=== PATIENT | female | born 1945 | race Caucasian/White ===

== ENCOUNTER 2017-10-30 11:22 | Inpatient (IN) | payer MEDICARE, OTHER ==
[~2017-10-30] VITALS: Ht 165.1 cm; Wt 77.6 kg
[2017-10-30] MEDS ORDERED: SODIUM CHLORIDE 0.9% 1,000 ML IV ONE ×2 (12:15→15:45)
[2017-10-30] MEDS ORDERED: LEVOFLOXACIN 500MG 100 ML IV ONE (12:15)
[2017-10-30 12:51] LABS: Basophils # (auto) 0 uL; Basophils % (auto) 0.2 % (0.0-2.0); Eosinophils % (auto) 5.9 % (0.0-7.0); Lymphocytes # (auto) 0.5 uL; Lymphocytes % (auto) 2.7 % (10.0-50.0); Mean Corpuscular Hemoglobin 28.4 pg (28.0-32.0); Mean Corpuscular Hgb Conc. 32.4 g/dL (32.0-36.0); Mean Corpuscular Volume 87.8 fL (80.0-100.0); Monocytes # (auto) 0.3 uL; Monocytes % (auto) 1.9 % (0.0-12.0); Neutrophils # (auto) 14.9 uL; Neutrophils % (auto) 89.3 % (37.0-80.0); Nucleated Red Blood Cells % 0.1 %; Platelet Count (auto) 165 10^3/uL (140-450); Red Blood Cells 4.22 10^6/uL (4.0-5.20); Red Cell Distribution Width 14.8 % (11.8-14.3); White Blood Cell 16.7 10^3/uL (4.4-10.8)
[2017-10-30 13:13] LABS: Albumin 1.8 g/dL (3.4-5.0); BUN/Creatinine Ratio 47.7; Calcium 8.1 mg/dL (8.5-10.1); Potassium 3.8 mmol/L (3.5-5.1)
[2017-10-30 13:18] LABS: Bilirubin, Total 0.8 mg/dL (0.2-1.0); Total Protein 6.5 g/dL (6.4-8.2)
[2017-10-30] MEDS ORDERED: AZITHROMYCIN 500MG/ 250ML 250 ML IV ONE ×2 (14:30→15:30)
[2017-10-30] MEDS ORDERED: SODIUM CHLORIDE 0.9% 500 ML IV ONE (14:45)
[2017-10-30] MEDS ORDERED: SODIUM CHLORIDE 0.9% 1,000 ML IV SCH (14:52)
[2017-10-30] MEDS ORDERED: TEMAZEPAM 15 MG CAP PO PRN (15:00)
[2017-10-30] MEDS ORDERED: LORazepam 0.5 MG TAB PO PRN (15:00)
[2017-10-30] MEDS ORDERED: MORPHINE SULF INJ 2 MG/ML SYRINGE 1ML IV PRN ×2 (15:00)
[2017-10-30] MEDS ORDERED: ALBUTEROL SULF 2.5 MG/0.5ML(0.5%) NEB SOLN NEB PRN (15:00)
[2017-10-30] MEDS ORDERED: NITROGLYCERIN 0.4 MG SL TAB SL PRN (15:00)
[2017-10-30] MEDS ORDERED: LACTULOSE 20Gm/30ML SOLN PO PRN (15:00)
[2017-10-30] MEDS ORDERED: DEXTROSE (50%) 50ML SYRG IV PRN (15:00)
[2017-10-30] MEDS ORDERED: PIPERACILLIN-TAZOB 3.375GM 50 ML IV ONE (15:30)
[2017-10-30] MEDS ORDERED: OSELTAMIVIR 75 MG CAP PO ONE (15:30)
[2017-10-30] MEDS ORDERED: ONDANSETRON HCL 4 MG/2 ML VIAL ONE (15:54)
[2017-10-30] MEDS ORDERED: ONDANSETRON HCL 4 MG/2 ML VIAL IV ONE (16:15)
[2017-10-30] MEDS ORDERED: methylPREDNISolone SOD SUCC 40 MG/ML VL IV ONE (16:30)
[2017-10-30] MEDS: ACCU-CHEK COMFORT CURVE STRIP VI SCH ×2 (16:31→20:36)
[2017-10-30] MEDS: SODIUM CHLORIDE 0.9% 1,000 ML IV SCH (17:32)
[2017-10-30] MEDS: LINEZOLID 600MG/300ML 300 ML IV SCH (17:45)
[2017-10-30] MEDS: methylPREDNISolone SOD SUCC 40 MG/ML VL IV SCH (17:45)
[2017-10-30] MEDS: IPRATROPIUM BROM 0.5 MG/2.5ML INH SOL NEB SCH ×2 (18:25→23:26)
[2017-10-30] MEDS: ALBUTEROL SULF 2.5 MG/0.5ML(0.5%) NEB SOLN NEB SCH ×2 (18:25→23:26)
[2017-10-30 19:10] VITALS: BP 94/40
[2017-10-30 20:50] VITALS: BP 97/54
[2017-10-30] MEDS: PIPERACILLIN-TAZOB 3.375GM 50 ML IV SCH (21:31)
[2017-10-30] MEDS: ATORVASTATIN 20 MG TAB PO SCH (21:42)
[2017-10-30] MEDS ORDERED: OSELTAMIVIR 30 MG CAP PO SCH (22:00)
[2017-10-30 22:46] VITALS: BP 89/44
[2017-10-31] VITALS (9 sets, daily range): BP systolic 97–140; BP diastolic 47–64
[2017-10-31] MEDS: ACCU-CHEK COMFORT CURVE STRIP VI SCH ×6 (00:14→20:00)
[2017-10-31] MEDS: HYDROcodone-ACET 5/325MG TAB PO PRN ×4 (00:22→22:51)
[2017-10-31] MEDS: SODIUM CHLORIDE 0.9% 1,000 ML IV SCH ×3 (01:00→22:30)
[2017-10-31] MEDS: PIPERACILLIN-TAZOB 3.375GM 50 ML IV SCH ×4 (03:11→21:42)
[2017-10-31 05:02] LABS: Basophils # (auto) 0 uL; Basophils % (auto) 0.2 % (0.0-2.0); Eosinophils # (auto) 0 uL; Eosinophils % (auto) 0.2 % (0.0-7.0); Hematocrit 32.5 % (36.0-46.0); Lymphocytes # (auto) 0.2 uL; Lymphocytes % (auto) 1.4 % (10.0-50.0); Mean Corpuscular Hemoglobin 28.7 pg (28.0-32.0); Mean Corpuscular Hgb Conc. 33.7 g/dL (32.0-36.0); Mean Corpuscular Volume 85.1 fL (80.0-100.0); Monocytes # (auto) 0.2 uL; Monocytes % (auto) 1.3 % (0.0-12.0); Neutrophils % (auto) 96.9 % (37.0-80.0); Platelet Count (auto) 149 10^3/uL (140-450); Red Blood Cells 3.82 10^6/uL (4.0-5.20); Red Cell Distribution Width 14.4 % (11.8-14.3); White Blood Cell 13.4 10^3/uL (4.4-10.8)
[2017-10-31] MEDS: LINEZOLID 600MG/300ML 300 ML IV SCH ×2 (05:10→16:59)
[2017-10-31 05:37] LABS: Albumin 1.6 g/dL (3.4-5.0); BUN/Creatinine Ratio 72.1; Bilirubin, Total 0.8 mg/dL (0.2-1.0); Calcium 7.4 mg/dL (8.5-10.1); Potassium 3.5 mmol/L (3.5-5.1); Total Protein 6.2 g/dL (6.4-8.2)
[2017-10-31] MEDS: methylPREDNISolone SOD SUCC 40 MG/ML VL IV SCH ×2 (06:16→18:00)
[2017-10-31] MEDS: ALBUTEROL SULF 2.5 MG/0.5ML(0.5%) NEB SOLN NEB SCH ×3 (06:46→18:25)
[2017-10-31] MEDS: IPRATROPIUM BROM 0.5 MG/2.5ML INH SOL NEB SCH ×3 (06:46→18:25)
[2017-10-31] MEDS: PROMETHAZINE HCL 25 MG/ML 1ML IV PRN ×2 (09:11→09:50)
[2017-10-31] MEDS: ASPirin 81 mg TAB PO SCH (09:59)
[2017-10-31] MEDS: AZITHROMYCIN 500MG/ 250ML 250 ML IV SCH (10:00)
[2017-10-31] MEDS: ENOXAPARIN SOD 40 MG/0.4 ML SYRINGE SC SCH (10:00)
[2017-10-31] MEDS ORDERED: MORPHINE SULFATE 4 MG/ML SYR/VIAL IV PRN ×2 (11:00)
[2017-10-31 17:36] LABS: BUN/Creatinine Ratio 56.9; Calcium 8.1 mg/dL (8.5-10.1); Potassium 3.2 mmol/L (3.5-5.1)
[2017-10-31] MEDS: POTASSIUM CHL 20MEQ/50ML 50 ML IV SCH ×2 (19:35→21:45)
[2017-10-31] MEDS: ATORVASTATIN 20 MG TAB PO SCH (22:51)
[2017-11-01] VITALS (24 sets, daily range): BP systolic 107–156; BP diastolic 53–83
[2017-11-01] MEDS: IPRATROPIUM BROM 0.5 MG/2.5ML INH SOL NEB SCH ×4 (00:44→19:25)
[2017-11-01] MEDS: ALBUTEROL SULF 2.5 MG/0.5ML(0.5%) NEB SOLN NEB SCH ×4 (00:44→19:25)
[2017-11-01] MEDS: PIPERACILLIN-TAZOB 3.375GM 50 ML IV SCH ×3 (03:01→14:44)
[2017-11-01] MEDS: ACCU-CHEK COMFORT CURVE STRIP VI SCH ×4 (04:12→12:27)
[2017-11-01] MEDS: LINEZOLID 600MG/300ML 300 ML IV SCH ×2 (05:25→17:51)
[2017-11-01] MEDS: methylPREDNISolone SOD SUCC 40 MG/ML VL IV SCH ×2 (05:25→17:51)
[2017-11-01] MEDS: SODIUM CHLORIDE 0.9% 1,000 ML IV SCH ×2 (08:30→16:00)
[2017-11-01] MEDS: ASPirin 81 mg TAB PO SCH (09:57)
[2017-11-01] MEDS: ENOXAPARIN SOD 40 MG/0.4 ML SYRINGE SC SCH (09:58)
[2017-11-01] MEDS ORDERED: POTASSIUM CHL 20MEQ/50ML 50 ML IV ONE (10:00)
[2017-11-01] MEDS: AZITHROMYCIN 500MG/ 250ML 250 ML IV SCH (10:00)
[2017-11-01] MEDS: ROTIGOTINE TD SCH (10:00)
[2017-11-01] MEDS ORDERED: ETOMIDATE (2MG/ML) 20ML VIAL IV ONE (20:25)
[2017-11-01] MEDS ORDERED: ROCURONIUM 10MG/ML 10ML VIAL IV ONE ×2 (20:25→21:22)
[2017-11-01] MEDS ORDERED: SUCCINYLCHOLINE CHLORIDE 20 MG/ML 10ML VIAL IV ONE (20:26)
[2017-11-01] MEDS ORDERED: MIDAZOLAM HCL 1MG/1ML-2 ML VIAL ONE (20:27)
[2017-11-01] MEDS ORDERED: MIDAZOLAM DRIP 50 mg/50mL 50 ML IV ONE ×2 (20:51→23:28)
[2017-11-01] MEDS ORDERED: PROPOFOL 100 ML IV ONE ×2 (21:14→23:33)
[2017-11-01] MEDS ORDERED: PROPOFOL 10 MG/ML 20 ML IV PRN (21:15)
[2017-11-01] MEDS: PROPOFOL 100 ML IV SCH (21:30)
[2017-11-01] MEDS: ATORVASTATIN 20 MG TAB PO SCH (22:00)
[2017-11-01] MEDS: MIDAZOLAM DRIP 50 mg/50mL 50 ML IV SCH (23:40)
[2017-11-02] VITALS (106 sets, daily range): BP systolic 82–138; BP diastolic 40–69
[2017-11-02] MEDS ORDERED: AMIODARONE HCL 900 MG IV ONE (00:34)
[2017-11-02] MEDS ORDERED: AMIODARONE HCL (50 MG/ ML) 3 ML VIAL IV ONE (00:34)
[2017-11-02 00:45] LABS: Basophils # (auto) 0 uL; Basophils % (auto) 0.1 % (0.0-2.0); Eosinophils # (auto) 0 uL; Eosinophils % (auto) 0.2 % (0.0-7.0); Hematocrit 30.1 % (36.0-46.0); Hemoglobin 9.9 g/dL (12.2-16.2); Lymphocytes # (auto) 0.1 uL; Lymphocytes % (auto) 0.9 % (10.0-50.0); Mean Corpuscular Hgb Conc. 32.7 g/dL (32.0-36.0); Mean Corpuscular Volume 85.7 fL (80.0-100.0); Monocytes # (auto) 0.1 uL; Monocytes % (auto) 1.1 % (0.0-12.0); Neutrophils # (auto) 11.1 uL; Neutrophils % (auto) 97.7 % (37.0-80.0); Platelet Count (auto) 143 10^3/uL (140-450); Red Blood Cells 3.51 10^6/uL (4.0-5.20); Red Cell Distribution Width 14.4 % (11.8-14.3); White Blood Cell 11.4 10^3/uL (4.4-10.8)
[2017-11-02] MEDS ORDERED: AMIODARONE HCL 150 MG in D5W 5% 100 ML IV ONE (00:45)
[2017-11-02] MEDS ORDERED: AMIODARONE HCL 900 MG in DEXTROSE 500 ML IV SCH (00:45)
[2017-11-02] MEDS: PIPERACILLIN-TAZOB 3.375GM 50 ML IV SCH ×5 (01:00→20:36)
[2017-11-02 01:06] LABS: Albumin 1.5 g/dL (3.4-5.0); BUN/Creatinine Ratio 54.5; Calcium 8.2 mg/dL (8.5-10.1); Magnesium 2.1 mg/dL (1.6-2.6); Potassium 3.8 mmol/L (3.5-5.1)
[2017-11-02 01:09] LABS: Bilirubin, Total 0.6 mg/dL (0.2-1.0); Total Protein 5.7 g/dL (6.4-8.2)
[2017-11-02] MEDS: fentaNYL Drip 2500mCg/250mlNS 250 ML IV SCH (02:00)
[2017-11-02] MEDS ORDERED: ALBUMIN 5% 50 ML IV ONE (02:15)
[2017-11-02] MEDS ORDERED: ALBUMIN 25% 100 ML IV ONE (02:26)
[2017-11-02] MEDS: ACETAMINOPHEN 500 MG TAB PO PRN ×2 (02:28→23:00)
[2017-11-02 04:39] LABS: Basophils # (auto) 0 uL; Basophils % (auto) 0.1 % (0.0-2.0); Eosinophils # (auto) 0 uL; Eosinophils % (auto) 0.3 % (0.0-7.0); Hematocrit 28.5 % (36.0-46.0); Hemoglobin 9.4 g/dL (12.2-16.2); Lymphocytes # (auto) 0.1 uL; Lymphocytes % (auto) 1.3 % (10.0-50.0); Mean Corpuscular Hemoglobin 28.9 pg (28.0-32.0); Mean Corpuscular Volume 87.5 fL (80.0-100.0); Monocytes # (auto) 0.1 uL; Monocytes % (auto) 1.1 % (0.0-12.0); Neutrophils # (auto) 9.1 uL; Neutrophils % (auto) 97.2 % (37.0-80.0); Platelet Count (auto) 129 10^3/uL (140-450); Red Blood Cells 3.26 10^6/uL (4.0-5.20); Red Cell Distribution Width 14.3 % (11.8-14.3); White Blood Cell 9.4 10^3/uL (4.4-10.8)
[2017-11-02 04:49] LABS: BUN/Creatinine Ratio 60.7; Calcium 8.1 mg/dL (8.5-10.1); Magnesium 2.2 mg/dL (1.6-2.6); Potassium 3.3 mmol/L (3.5-5.1)
[2017-11-02] MEDS: LINEZOLID 600MG/300ML 300 ML IV SCH ×2 (05:00→17:41)
[2017-11-02] MEDS: methylPREDNISolone SOD SUCC 40 MG/ML VL IV SCH ×2 (06:00→18:08)
[2017-11-02] MEDS: SODIUM CHLORIDE 0.9% 1,000 ML IV SCH ×2 (06:03→10:14)
[2017-11-02] MEDS: IPRATROPIUM BROM 0.5 MG/2.5ML INH SOL NEB SCH ×4 (06:16→18:33)
[2017-11-02] MEDS: ALBUTEROL SULF 2.5 MG/0.5ML(0.5%) NEB SOLN NEB SCH ×4 (06:16→18:33)
[2017-11-02] MEDS: AMIODARONE HCL 900 MG in DEXTROSE 500 ML IV SCH ×2 (06:54→20:36)
[2017-11-02] MEDS: ROTIGOTINE TD SCH (10:00)
[2017-11-02] MEDS ORDERED: FUROSEMIDE 20 MG/2 ML VIAL ONE (10:05)
[2017-11-02] MEDS: NOREPINEPHRINE 8 MG/250ML KIT 250 ML IV SCH (10:15)
[2017-11-02] MEDS: AZITHROMYCIN 500MG/ 250ML 250 ML IV SCH (10:15)
[2017-11-02] MEDS: ENOXAPARIN SOD 40 MG/0.4 ML SYRINGE SC SCH (10:15)
[2017-11-02] MEDS ORDERED: FUROSEMIDE 20 MG/2 ML VIAL IV ONE ×2 (10:15→14:30)
[2017-11-02] MEDS: ASPirin 81 mg TAB PO SCH (10:16)
[2017-11-02] MEDS ORDERED: POTASSIUM CHL 10% (20 MEQ/15ML) 15ml ORAL SOLN GT ONE (11:15)
[2017-11-02] MEDS: MIDAZOLAM DRIP 50 mg/50mL 50 ML IV SCH ×3 (12:52→22:44)
[2017-11-02 15:34] LABS: Urine Bacteria NONE SEEN /hpf (None Seen); Urine Blood 1+ /uL (Negative); Urine Budding Yeast FEW /hpf (None Seen); Urine Mucus FEW (None Seen); Urine Specific Gravity 1.021 (1.001-1.035); Urine WBC 11 /hpf (0 - 5)
[2017-11-02 17:16] LABS: Lactic Acid w/Reflex 2.2 mmol/L (0.4-2.0)
[2017-11-02] MEDS: PROPOFOL 100 ML IV SCH ×2 (18:08→22:43)
[2017-11-02] MEDS: ATORVASTATIN 20 MG TAB PO SCH (22:00)
[2017-11-03] VITALS (99 sets, daily range): BP systolic 89–173; BP diastolic 36–87
[2017-11-03] MEDS: ALBUTEROL SULF 2.5 MG/0.5ML(0.5%) NEB SOLN NEB SCH ×4 (00:14→18:30)
[2017-11-03] MEDS: IPRATROPIUM BROM 0.5 MG/2.5ML INH SOL NEB SCH ×4 (00:14→18:30)
[2017-11-03] MEDS: fentaNYL Drip 2500mCg/250mlNS 250 ML IV SCH ×2 (00:30→17:18)
[2017-11-03] MEDS: PIPERACILLIN-TAZOB 3.375GM 50 ML IV SCH ×4 (03:00→21:14)
[2017-11-03] MEDS: MIDAZOLAM DRIP 50 mg/50mL 50 ML IV SCH ×5 (03:47→23:40)
[2017-11-03] MEDS: PROPOFOL 100 ML IV SCH ×3 (03:48→23:47)
[2017-11-03 05:26] LABS: Basophils # (auto) 0 uL; Basophils % (auto) 0.3 % (0.0-2.0); Eosinophils # (auto) 0.6 uL; Eosinophils % (auto) 5.2 % (0.0-7.0); Hematocrit 33.3 % (36.0-46.0); Hemoglobin 10.9 g/dL (12.2-16.2); Lymphocytes # (auto) 0.2 uL; Lymphocytes % (auto) 1.6 % (10.0-50.0); Mean Corpuscular Hgb Conc. 32.7 g/dL (32.0-36.0); Mean Corpuscular Volume 88.8 fL (80.0-100.0); Monocytes # (auto) 0.1 uL; Monocytes % (auto) 0.6 % (0.0-12.0); Neutrophils # (auto) 10.7 uL; Neutrophils % (auto) 92.3 % (37.0-80.0); Nucleated Red Blood Cells % 0.1 %; Platelet Count (auto) 125 10^3/uL (140-450); Red Blood Cells 3.75 10^6/uL (4.0-5.20); Red Cell Distribution Width 14.6 % (11.8-14.3); White Blood Cell 11.5 10^3/uL (4.4-10.8)
[2017-11-03 05:34] LABS: BUN/Creatinine Ratio 41.3; Calcium 8.3 mg/dL (8.5-10.1); Potassium 3.6 mmol/L (3.5-5.1)
[2017-11-03] MEDS: LINEZOLID 600MG/300ML 300 ML IV SCH ×2 (06:08→17:17)
[2017-11-03] MEDS: methylPREDNISolone SOD SUCC 40 MG/ML VL IV SCH ×2 (06:09→17:23)
[2017-11-03] MEDS: ROTIGOTINE TD SCH (09:43)
[2017-11-03] MEDS: ASPirin 81 mg TAB PO SCH (09:43)
[2017-11-03] MEDS: AZITHROMYCIN 500MG/ 250ML 250 ML IV SCH (09:43)
[2017-11-03] MEDS: ENOXAPARIN SOD 40 MG/0.4 ML SYRINGE SC SCH (09:43)
[2017-11-03] MEDS: SODIUM CHLORIDE 0.9% 1,000 ML IV SCH (10:15)
[2017-11-03] MEDS: NOREPINEPHRINE 8 MG/250ML KIT 250 ML IV SCH ×2 (10:15→17:34)
[2017-11-03] MEDS ORDERED: FLUCONAZOLE 200MG/100ML 100 ML IV ONE (11:15)
[2017-11-03] MEDS: ATORVASTATIN 20 MG TAB PO SCH (21:23)
[2017-11-03] MEDS: ACETAMINOPHEN 500 MG TAB PO PRN (21:24)
[2017-11-04] VITALS (94 sets, daily range): BP systolic 98–139; BP diastolic 36–65
[2017-11-04] MEDS: ALBUTEROL SULF 2.5 MG/0.5ML(0.5%) NEB SOLN NEB SCH ×4 (00:21→19:30)
[2017-11-04] MEDS: IPRATROPIUM BROM 0.5 MG/2.5ML INH SOL NEB SCH ×4 (00:21→19:30)
[2017-11-04] MEDS: AMIODARONE HCL 900 MG in DEXTROSE 500 ML IV SCH (03:07)
[2017-11-04] MEDS: PIPERACILLIN-TAZOB 3.375GM 50 ML IV SCH ×4 (03:08→20:49)
[2017-11-04 04:10] LABS: Basophils # (auto) 0 uL; Basophils % (auto) 0.1 % (0.0-2.0); Eosinophils # (auto) 0.1 uL; Eosinophils % (auto) 1.3 % (0.0-7.0); Hematocrit 33.4 % (36.0-46.0); Hemoglobin 11.1 g/dL (12.2-16.2); Lymphocytes # (auto) 0.1 uL; Lymphocytes % (auto) 1.9 % (10.0-50.0); Mean Corpuscular Hemoglobin 30.3 pg (28.0-32.0); Mean Corpuscular Hgb Conc. 33.3 g/dL (32.0-36.0); Mean Corpuscular Volume 91.2 fL (80.0-100.0); Monocytes # (auto) 0.1 uL; Monocytes % (auto) 0.9 % (0.0-12.0); Neutrophils # (auto) 6.8 uL; Neutrophils % (auto) 95.8 % (37.0-80.0); Nucleated Red Blood Cells % 0.1 %; Platelet Count (auto) 88 10^3/uL (140-450); Red Blood Cells 3.66 10^6/uL (4.0-5.20); Red Cell Distribution Width 14.6 % (11.8-14.3); White Blood Cell 7.1 10^3/uL (4.4-10.8)
[2017-11-04 04:29] LABS: Calcium 8.1 mg/dL (8.5-10.1); Potassium 3.3 mmol/L (3.5-5.1)
[2017-11-04] MEDS: LINEZOLID 600MG/300ML 300 ML IV SCH (04:41)
[2017-11-04] MEDS: methylPREDNISolone SOD SUCC 40 MG/ML VL IV SCH ×2 (04:41→18:21)
[2017-11-04] MEDS: MIDAZOLAM DRIP 50 mg/50mL 50 ML IV SCH ×4 (04:44→20:06)
[2017-11-04] MEDS: PROPOFOL 100 ML IV SCH ×3 (08:52→20:06)
[2017-11-04] MEDS: ENOXAPARIN SOD 40 MG/0.4 ML SYRINGE SC SCH (10:00)
[2017-11-04] MEDS: ASPirin 81 mg TAB PO SCH (10:09)
[2017-11-04] MEDS: FLUCONAZOLE 200MG/100ML 100 ML IV SCH (10:09)
[2017-11-04] MEDS: fentaNYL Drip 2500mCg/250mlNS 250 ML IV SCH (10:09)
[2017-11-04] MEDS: POTASSIUM CHL 20MEQ/50ML 50 ML IV SCH ×2 (10:10→11:39)
[2017-11-04] MEDS: SODIUM CHLORIDE 0.9% 1,000 ML IV SCH (10:15)
[2017-11-04] MEDS: ROTIGOTINE TD SCH (10:35)
[2017-11-04] MEDS: AZITHROMYCIN 500MG/ 250ML 250 ML IV SCH (11:39)
[2017-11-04] MEDS ORDERED: VANCOMYCIN PER PHARMACY 0 MG IV SCH (14:15)
[2017-11-04] MEDS: VANCOMYCIN 1GM/250ML 250 ML IV SCH (15:00)
[2017-11-04] MEDS: FUROSEMIDE 40 MG/4 ML VIAL IV SCH (18:21)
[2017-11-04 19:03] LABS: BUN/Creatinine Ratio 35.6; Calcium 7.8 mg/dL (8.5-10.1); Potassium 4.4 mmol/L (3.5-5.1)
[2017-11-04] MEDS: ATORVASTATIN 20 MG TAB PO SCH (22:00)
[2017-11-05] VITALS (96 sets, daily range): BP systolic 91–175; BP diastolic 41–79
[2017-11-05] MEDS: IPRATROPIUM BROM 0.5 MG/2.5ML INH SOL NEB SCH ×4 (00:25→18:26)
[2017-11-05] MEDS: ALBUTEROL SULF 2.5 MG/0.5ML(0.5%) NEB SOLN NEB SCH ×4 (00:25→18:26)
[2017-11-05] MEDS: PIPERACILLIN-TAZOB 3.375GM 50 ML IV SCH ×4 (03:18→21:10)
[2017-11-05] MEDS: FUROSEMIDE 40 MG/4 ML VIAL IV SCH ×2 (06:17→17:42)
[2017-11-05] MEDS: methylPREDNISolone SOD SUCC 40 MG/ML VL IV SCH ×2 (06:17→17:41)
[2017-11-05] MEDS: AMIODARONE HCL 900 MG in DEXTROSE 500 ML IV SCH (06:18)
[2017-11-05] MEDS: MIDAZOLAM DRIP 50 mg/50mL 50 ML IV SCH ×3 (06:18→21:11)
[2017-11-05] MEDS: PROPOFOL 100 ML IV SCH ×3 (06:18→21:11)
[2017-11-05] MEDS: VANCOMYCIN 1GM/250ML 250 ML IV SCH ×2 (06:28→21:10)
[2017-11-05] MEDS: NOREPINEPHRINE 8 MG/250ML KIT 250 ML IV SCH (10:15)
[2017-11-05] MEDS: SODIUM CHLORIDE 0.9% 1,000 ML IV SCH (10:15)
[2017-11-05] MEDS: FLUCONAZOLE 200MG/100ML 100 ML IV SCH (10:36)
[2017-11-05] MEDS: ENOXAPARIN SOD 40 MG/0.4 ML SYRINGE SC SCH (10:36)
[2017-11-05] MEDS: ASPirin 81 mg TAB PO SCH (10:36)
[2017-11-05] MEDS: ROTIGOTINE TD SCH (10:37)
[2017-11-05] MEDS: AMIODARONE HCL 200 MG TAB PO SCH ×2 (14:59→22:00)
[2017-11-05] MEDS: fentaNYL Drip 2500mCg/250mlNS 250 ML IV SCH (17:07)
[2017-11-05] MEDS: ATORVASTATIN 20 MG TAB PO SCH (22:00)
[2017-11-06] VITALS (69 sets, daily range): BP systolic 90–115; BP diastolic 36–53
[2017-11-06] MEDS: ALBUTEROL SULF 2.5 MG/0.5ML(0.5%) NEB SOLN NEB SCH ×4 (00:28→18:30)
[2017-11-06] MEDS: IPRATROPIUM BROM 0.5 MG/2.5ML INH SOL NEB SCH ×4 (00:28→18:30)
[2017-11-06] MEDS: PIPERACILLIN-TAZOB 3.375GM 50 ML IV SCH ×2 (03:21→08:41)
[2017-11-06 05:11] LABS: Basophils # (auto) 0 uL; Basophils % (auto) 0.1 % (0.0-2.0); Eosinophils # (auto) 0.1 uL; Hemoglobin 9.1 g/dL (12.2-16.2); Lymphocytes # (auto) 0.2 uL; Monocytes # (auto) 0.1 uL
[2017-11-06 05:13] LABS: Lymphocytes % (auto) 2.9 % (10.0-50.0); Mean Corpuscular Hemoglobin 28.9 pg (28.0-32.0); Mean Corpuscular Hgb Conc. 33.8 g/dL (32.0-36.0); Mean Corpuscular Volume 85.7 fL (80.0-100.0); Monocytes % (auto) 1.2 % (0.0-12.0); Neutrophils # (auto) 7.1 uL; Neutrophils % (auto) 94.8 % (37.0-80.0); Nucleated Red Blood Cells % 0.6 %; Platelet Count (auto) 32 10^3/uL (140-450); Red Blood Cells 3.15 10^6/uL (4.0-5.20); Red Cell Distribution Width 14.5 % (11.8-14.3); White Blood Cell 7.5 10^3/uL (4.4-10.8)
[2017-11-06] MEDS: FUROSEMIDE 40 MG/4 ML VIAL IV SCH (06:00)
[2017-11-06] MEDS: methylPREDNISolone SOD SUCC 40 MG/ML VL IV SCH ×2 (06:00→09:49)
[2017-11-06 07:45] LABS: Albumin 1.2 g/dL (3.4-5.0); Bilirubin, Total 1.5 mg/dL (0.2-1.0); Calcium 7.3 mg/dL (8.5-10.1); Total Protein 4.9 g/dL (6.4-8.2)
[2017-11-06] MEDS: ENOXAPARIN SOD 40 MG/0.4 ML SYRINGE SC SCH (09:49)
[2017-11-06] MEDS: AMIODARONE HCL 200 MG TAB PO SCH ×2 (09:49→22:07)
[2017-11-06] MEDS: FLUCONAZOLE 200MG/100ML 100 ML IV SCH (09:49)
[2017-11-06] MEDS: ASPirin 81 mg TAB PO SCH (09:49)
[2017-11-06] MEDS: ROTIGOTINE TD SCH (09:51)
[2017-11-06] MEDS: SODIUM CHLORIDE 0.9% 1,000 ML IV SCH (10:15)
[2017-11-06] MEDS: NOREPINEPHRINE 8 MG/250ML KIT 250 ML IV SCH (10:15)
[2017-11-06 11:10] LABS: BUN/Creatinine Ratio 30.8; Calcium 7.4 mg/dL (8.5-10.1); Potassium 5.1 mmol/L (3.5-5.1)
[2017-11-06] MEDS: MIDAZOLAM DRIP 50 mg/50mL 50 ML IV SCH ×2 (11:38→19:41)
[2017-11-06] MEDS: PROPOFOL 100 ML IV SCH ×2 (11:40→18:39)
[2017-11-06] MEDS: PIPERACILLIN TAZOB 2.25 GM IV SCH ×2 (11:50→17:33)
[2017-11-06] MEDS ORDERED: CLINIMIX PER PHARMACY 0 ML IV SCH (15:15)
[2017-11-06 15:51] LABS: Magnesium 2.3 mg/dL (1.6-2.6); Phosphorus 5.2 mg/dL (2.5-4.90); Pre Albumin 3.8 mg/dL (20.0-40.0)
[2017-11-06] MEDS: ACCU-CHEK COMFORT CURVE STRIP VI SCH (17:33)
[2017-11-06] MEDS: InsuLIN REG 1unit/0.01ml Soln (100units/ml) SC SCH (17:33)
[2017-11-06] MEDS ORDERED: DEXTROSE (50%) 50ML SYRG IV SCH (18:00)
[2017-11-06] MEDS ORDERED: CLINIMIX PER PHARMACY IV NR ×7 (20:00)
[2017-11-06] MEDS: ATORVASTATIN 20 MG TAB PO SCH (22:06)
[2017-11-07] VITALS (104 sets, daily range): BP systolic 98–124; BP diastolic 35–51
[2017-11-07] MEDS: ACCU-CHEK COMFORT CURVE STRIP VI SCH ×4 (00:09→17:56)
[2017-11-07] MEDS: IPRATROPIUM BROM 0.5 MG/2.5ML INH SOL NEB SCH ×4 (01:05→18:27)
[2017-11-07] MEDS: ALBUTEROL SULF 2.5 MG/0.5ML(0.5%) NEB SOLN NEB SCH ×4 (01:05→18:27)
[2017-11-07] MEDS: fentaNYL Drip 2500mCg/250mlNS 250 ML IV SCH (01:57)
[2017-11-07] MEDS: PROPOFOL 100 ML IV SCH ×2 (03:10→20:51)
[2017-11-07] MEDS: MIDAZOLAM DRIP 50 mg/50mL 50 ML IV SCH (04:15)
[2017-11-07 04:58] LABS: Albumin 1.4 g/dL (3.4-5.0); BUN/Creatinine Ratio 30.9; Bilirubin, Total 1.8 mg/dL (0.2-1.0); Calcium 7.5 mg/dL (8.5-10.1); Magnesium 2.5 mg/dL (1.6-2.6); Phosphorus 5.7 mg/dL (2.5-4.90); Potassium 5.5 mmol/L (3.5-5.1); Total Protein 5.3 g/dL (6.4-8.2)
[2017-11-07] MEDS: InsuLIN REG 1unit/0.01ml Soln (100units/ml) SC SCH ×4 (06:00→17:57)
[2017-11-07] MEDS: PIPERACILLIN TAZOB 2.25 GM IV SCH ×4 (06:15→17:56)
[2017-11-07] MEDS: methylPREDNISolone SOD SUCC 40 MG/ML VL IV SCH ×2 (06:15→17:56)
[2017-11-07] MEDS: ROTIGOTINE TD SCH (10:00)
[2017-11-07] MEDS: AMIODARONE HCL 200 MG TAB PO SCH ×2 (10:00→22:00)
[2017-11-07] MEDS: ASPirin 81 mg TAB PO SCH (10:00)
[2017-11-07] MEDS: FLUCONAZOLE 200MG/100ML 100 ML IV SCH (10:31)
[2017-11-07] MEDS: SODIUM CHLORIDE 0.9% 1,000 ML IV SCH (10:32)
[2017-11-07] MEDS ORDERED: SODIUM BICARBONATE 50ML VIAL 50 ML in SOD CHL 0.45% 1,000 ML IV ONE (13:00)
[2017-11-07] MEDS: NOREPINEPHRINE 8 MG/250ML KIT 250 ML IV SCH (17:42)
[2017-11-07] MEDS ORDERED: CLINIMIX PER PHARMACY IV NR ×7 (20:00)
[2017-11-07] MEDS: ATORVASTATIN 20 MG TAB PO SCH (22:00)
[2017-11-08] VITALS (103 sets, daily range): BP systolic 98–128; BP diastolic 31–57
[2017-11-08] MEDS: PIPERACILLIN TAZOB 2.25 GM IV SCH ×4 (00:11→18:02)
[2017-11-08] MEDS: ACCU-CHEK COMFORT CURVE STRIP VI SCH ×4 (00:12→17:44)
[2017-11-08] MEDS: InsuLIN REG 1unit/0.01ml Soln (100units/ml) SC SCH ×4 (00:12→18:03)
[2017-11-08] MEDS: fentaNYL Drip 2500mCg/250mlNS 250 ML IV SCH (01:57)
[2017-11-08] MEDS: MIDAZOLAM DRIP 50 mg/50mL 50 ML IV SCH ×3 (04:20→21:20)
[2017-11-08] MEDS: methylPREDNISolone SOD SUCC 40 MG/ML VL IV SCH ×2 (06:00→17:15)
[2017-11-08 06:06] LABS: Albumin 1.3 g/dL (3.4-5.0); BUN/Creatinine Ratio 31.8; Bilirubin, Direct 1.8 mg/dL (0-0.2); Bilirubin, Total 2.4 mg/dL (0.2-1.0); Calcium 7.1 mg/dL (8.5-10.1); Magnesium 2.4 mg/dL (1.6-2.6); Total Protein 4.9 g/dL (6.4-8.2); Uric Acid 7.5 mg/dL (2.6-6.0)
[2017-11-08] MEDS: PROPOFOL 100 ML IV SCH ×2 (06:20→21:19)
[2017-11-08 06:22] LABS: Potassium 5.6 mmol/L (3.5-5.1)
[2017-11-08] MEDS: ALBUTEROL SULF 2.5 MG/0.5ML(0.5%) NEB SOLN NEB SCH ×4 (06:38→18:18)
[2017-11-08] MEDS: IPRATROPIUM BROM 0.5 MG/2.5ML INH SOL NEB SCH ×4 (06:38→18:18)
[2017-11-08] MEDS: ASPirin 81 mg TAB PO SCH (09:37)
[2017-11-08] MEDS: FLUCONAZOLE 200MG/100ML 100 ML IV SCH (09:37)
[2017-11-08] MEDS: AMIODARONE HCL 200 MG TAB PO SCH ×2 (09:37→22:15)
[2017-11-08] MEDS: ROTIGOTINE TD SCH (10:00)
[2017-11-08] MEDS ORDERED: PPN PER PHARMACY IV SCH (10:00)
[2017-11-08] MEDS ORDERED: SODIUM BICARBONATE 50ML VIAL 150 ML in D5W 5% 1,000 ML IV SCH (11:15)
[2017-11-08] MEDS: SODIUM BICARBONATE 50ML VIAL 150 ML in D5W 5% 1,000 ML IV SCH (13:08)
[2017-11-08] MEDS ORDERED: PPN PER PHARMACY IV NR ×9 (20:00)
[2017-11-08] MEDS: NOREPINEPHRINE 8 MG/250ML KIT 250 ML IV SCH (20:19)
[2017-11-08 21:31] LABS: Urine Amorphous Crystal FEW /hpf (None Seen); Urine Bacteria FEW /hpf (None Seen); Urine Blood 2+ /uL (Negative); Urine Budding Yeast MODERATE /hpf (None Seen); Urine Specific Gravity 1.015 (1.001-1.035); Urine WBC 1 /hpf (0 - 5)
[2017-11-08 21:43] LABS: Protein, Urine 161.9 mg/dL (0.0-11.9)
[2017-11-08] MEDS: ATORVASTATIN 20 MG TAB PO SCH (22:15)
[2017-11-09] VITALS (56 sets, daily range): BP systolic 50–128; BP diastolic 28–50
[2017-11-09] MEDS: PIPERACILLIN TAZOB 2.25 GM IV SCH ×3 (00:09→10:54)
[2017-11-09] MEDS: InsuLIN REG 1unit/0.01ml Soln (100units/ml) SC SCH ×2 (00:09→06:09)
[2017-11-09] MEDS: ACCU-CHEK COMFORT CURVE STRIP VI SCH ×2 (00:09→06:09)
[2017-11-09] MEDS: IPRATROPIUM BROM 0.5 MG/2.5ML INH SOL NEB SCH ×2 (00:19→07:01)
[2017-11-09] MEDS: ALBUTEROL SULF 2.5 MG/0.5ML(0.5%) NEB SOLN NEB SCH ×2 (00:19→07:01)
[2017-11-09] MEDS: fentaNYL Drip 2500mCg/250mlNS 250 ML IV SCH (01:57)
[2017-11-09 05:15] LABS: Albumin 1.5 g/dL (3.4-5.0); BUN/Creatinine Ratio 32.4; Bilirubin, Total 3.6 mg/dL (0.2-1.0); Calcium 7.1 mg/dL (8.5-10.1); Magnesium 2.6 mg/dL (1.6-2.6); Phosphorus 6.5 mg/dL (2.5-4.90)
[2017-11-09 05:55] LABS: Potassium 6.1 mmol/L (3.5-5.1)
[2017-11-09 06:03] LABS: Basophils # (auto) 0.1 uL; Basophils % (auto) 0.2 % (0.0-2.0); Eosinophils # (auto) 0.2 uL; Eosinophils % (auto) 0.5 % (0.0-7.0); Hematocrit 16.2 % (36.0-46.0); Lymphocytes # (auto) 4.2 uL; Lymphocytes % (auto) 10.8 % (10.0-50.0); Mean Corpuscular Hemoglobin 39.2 pg (28.0-32.0); Mean Corpuscular Hgb Conc. 37.8 g/dL (32.0-36.0); Mean Corpuscular Volume 103.7 fL (80.0-100.0); Monocytes # (auto) 0.4 uL; Monocytes % (auto) 1.1 % (0.0-12.0); Neutrophils # (auto) 33.7 uL; Neutrophils % (auto) 87.4 % (37.0-80.0); Platelet Count (auto) 58 10^3/uL (140-450); Red Blood Cells 1.56 10^6/uL (4.0-5.20); Red Cell Distribution Width 14.5 % (11.8-14.3)
[2017-11-09] MEDS: methylPREDNISolone SOD SUCC 40 MG/ML VL IV SCH (06:08)
[2017-11-09] MEDS: SODIUM BICARBONATE 50ML VIAL 150 ML in D5W 5% 1,000 ML IV SCH (06:10)
[2017-11-09] MEDS ORDERED: CALCIUM GLUC 4.65meq/50ml D5AE 50 ML IV ONE (06:15)
[2017-11-09] MEDS ORDERED: InsuLIN REG 1unit/0.01ml Soln (100units/ml) IV ONE (06:15)
[2017-11-09] MEDS ORDERED: SODIUM BICARBONATE 8.4% INJ 50ML SYRINGE IV ONE (06:15)
[2017-11-09] MEDS ORDERED: DEXTROSE (50%) 50ML SYRG IV ONE (06:15)
[2017-11-09 06:16] LABS: INR 1.15 (0.9-1.15); Partial Thromboplastin Time 40.5 sec (22.64-33.71); Prothrombin Time 12.6 sec (9.37-12.3)
[2017-11-09 06:19] LABS: Nucleated Red Blood Cells % 4.9 %
[2017-11-09 06:22] LABS: Hemoglobin 6.1 g/dL (12.2-16.2); White Blood Cell 38.6 10^3/uL (4.4-10.8)
[2017-11-09] MEDS ORDERED: FUROSEMIDE 20 MG/2 ML VIAL IV ONE (07:30)
[2017-11-09] MEDS: FLUCONAZOLE 200MG/100ML 100 ML IV SCH (09:30)
[2017-11-09] MEDS: AMIODARONE HCL 200 MG TAB PO SCH (09:30)
[2017-11-09] MEDS: ASPirin 81 mg TAB PO SCH (09:30)
[2017-11-09] MEDS ORDERED: SODIUM BICARBONATE 50ML VIAL 150 ML in D5W 5% 1,000 ML IV SCH (09:45)
[2017-11-09] MEDS: ROTIGOTINE TD SCH (10:00)
[2017-11-09] MEDS ORDERED: methylPREDNISolone SOD SUCC 1,000 MG VL IV SCH (10:30)
[2017-11-09] MEDS ORDERED: DOPamine 1600MCG/ML D5W 250 ML IV ONE (11:57)
== END 2017-11-09 16:55 | disposition expired | DRG 870 ==
LOC: EDBD 11:22 → ER 11:22 → EDUNIT# 11:23 → TELE 11:23 → DOU IN ICU 20:50 → ICU WEST 11-01 21:02
PROVIDERS: ADMIT Internal Medicine; ATTEND Internal Medicine Pulmonary Disease
PROC: 02H633Z Insertion of Infusion Device into Right Atrium, Percutaneous Approach (ICD-10-PCS; 2017-10-30)
PROC: 5A09457 Assistance with Respiratory Ventilation, 24-96 Consecutive Hours, Continuous Positive Airway Pressure (ICD-10-PCS; 2017-10-31)
PROC: 5A1955Z Respiratory Ventilation, Greater than 96 Consecutive Hours (ICD-10-PCS; principal; 2017-11-01)
PROC: 0BH17EZ Insertion of Endotracheal Airway into Trachea, Via Natural or Artificial Opening (ICD-10-PCS; 2017-11-01)
DX: A41.9 Sepsis, unspecified organism (principal); J96.21 Acute and chronic respiratory failure with hypoxia; E43 Unspecified severe protein-calorie malnutrition; J18.9 Pneumonia, unspecified organism; I50.33 Acute on chronic diastolic (congestive) heart failure; D69.6 Thrombocytopenia, unspecified; E27.40 Unspecified adrenocortical insufficiency; N17.9 Acute kidney failure, unspecified; E87.2 Acidosis; J96.22 Acute and chronic respiratory failure with hypercapnia; E87.1 Hypo-osmolality and hyponatremia; I42.9 Cardiomyopathy, unspecified; J44.0 Chronic obstructive pulmonary disease with (acute) lower respiratory infection; J44.1 Chronic obstructive pulmonary disease with (acute) exacerbation; I46.9 Cardiac arrest, cause unspecified; D47.2 Monoclonal gammopathy; E87.5 Hyperkalemia; I11.0 Hypertensive heart disease with heart failure; E87.8 Other disorders of electrolyte and fluid balance, not elsewhere classified; I48.91 Unspecified atrial fibrillation; G25.81 Restless legs syndrome; E87.6 Hypokalemia; M48.00 Spinal stenosis, site unspecified; M79.7 Fibromyalgia; G47.33 Obstructive sleep apnea (adult) (pediatric); D64.9 Anemia, unspecified; E78.5 Hyperlipidemia, unspecified; M32.14 Glomerular disease in systemic lupus erythematosus; M35.00 Sjogren syndrome, unspecified; Y95 Nosocomial condition; Z82.49 Family history of ischemic heart disease and other diseases of the circulatory system; Z82.5 Family history of asthma and other chronic lower respiratory diseases; Z83.3 Family history of diabetes mellitus; Z87.01 Personal history of pneumonia (recurrent); Z98.1 Arthrodesis status; Z79.899 Other long term (current) drug therapy; Z90.49 Acquired absence of other specified parts of digestive tract; Z88.8 Allergy status to other drugs, medicaments and biological substances; Z91.011 Allergy to milk products
CPT/HCPCS: 36415; 36556; 36600; 71010; 76775; 80048; 80053; 80061; 80076; 80202; 81001; 82040; 82533; 82550; 82570; 82805; 82962; 83036; 83605; 83735; 83880; 84100; 84132; 84156; 84300; 84443; 84478; 84484; 84550; 85025; 85379; 85610; 85652; 85730; 86141; 86160; 86225; 86235; 86850; 86900; 86901; 86920; 87040; 87070; 87081; 87086; 87205; 87400; 93005; 93306; 94002; 94003; 94640; 94660; 96365; 99291; G9035; J0330; J0610; J1450; J1815; J1956; J2250; J2405; J2543; J2704; J3010; J7060; J7131